=== PATIENT | male | born 1960 | race Caucasian/White ===

== ENCOUNTER 2018-04-21 18:55 | Emergency (ER) | payer OTHER ==
[~2018-04-21] VITALS: Ht 188 cm; Wt 83.9 kg
[2018-04-21] MEDS ORDERED: LIDOCAINE 1% VIAL ONE (19:08)
--- NOTE | 2018-04-21 19:28 | ER.PDOC ---
General Chief Complaint: Extremities Stated Complaint: FISHING LURE IN THUMB Time seen by MD: 19:29 Source: patient Exam Limitations: no limitations History of Present Illness Occurred: just prior to arrival Where: home Severity: mild Context: other (fish hoow stuck in thumb) Location of Injury: (L) fingers Modifying Factors: pain on movement Allergies: Coded Allergies: No Known Allergies (Unverified , 04/21/18) Past Medical History Medical History: no pertinent history Family History Significant Family History: no pertinent family hx Social History Smoking: cigarettes, less than 1 pack/day Alcohol Use: none Drug Use: none Review of Systems Constitutional: no symptoms reported EENTM: no symptoms reported Respiratory: no symptoms reported Cardiovascular: no symptoms reported Gastrointestinal: no symptoms reported Genitourinary: no symptoms reported Musculoskeletal: see HPI Skin: no symptoms reported Psychiatric/Neurological: no symptoms reported Physical Exam General Appearance: Alert, No Apparent Distress Wrist: nml inspection 1 - two prongs of fish hook lodged in L thumb, medial aspect, one above IP, other below IP Neuro: sensation nml Vascular: no vascular compromise Tendons: tendon function nml Forearm/Elbow/Arm: uninjured above wrist Skin: warm/dry Head/ENT: nml inspection Neck/Back: nml inspection, non-tender Resp/CVS: no resp distress, lungs clear Abdomen: non-tender Additional Procedures Progress FISH HOOK REMOVAL - ANESTHESIA with 1% lidocaine, both hooks removed individually with 4.0 ethilon suture applied and traction. Departure Time of Disposition: 19:29 Disposition: 01 HOME, SELF-CARE Impression: Primary Impression: Fishing hook foreign body Condition: Stable Patient Instructions: Fish Hook Removal Referrals: PCP,UNKNOWN (PCP) PRIMARY CARE PROVIDER Additional Instructions: Return for redness, swelling or drainage of pus. Keep the finger covered and dry. Duration or Time Spent with Pa: PLACIDO BRAXTON MD Apr 21, 2018 19:27
[2018-04-21 19:53] VITALS: BP 138/66
== END 2018-04-21 19:47 | disposition home or self-care (01) ==
LOC: ER 18:55
DX: S61.022A Laceration with foreign body of left thumb without damage to nail, initial encounter (principal); F17.210 Nicotine dependence, cigarettes, uncomplicated; W22.8XXA Striking against or struck by other objects, initial encounter; Y92.098 Other place in other non-institutional residence as the place of occurrence of the external cause; Y93.89 Activity, other specified; Y99.8 Other external cause status
CPT/HCPCS: 12041; 99284; J2001; 12031